=== PATIENT | female | born 1985 | race African-American/Black ===

== ENCOUNTER 2020-07-13 01:19 | Emergency (ER) | payer SELFPAY ==
[~2020-07-13] VITALS: Ht 162.6 cm; Wt 113.6 kg
[~2020-07-13 01:19] MED LIST: ABILIFY2 MG PO; AMOXICILLIN875 MG OR; AUGMENTIN500TAB PO; AUGMENTIN875TAB PO; BENADRYL25 MG PO; BUSPAR15 MG PO; CITALOPRAM40 MG PO; CLARITHROMYC500 MG PO; DEPO-MEDROL80 MG/ML IM; FLAGYL500 MG OR; FLONASE0.05 %; HYDROCHLOROT12.5 MG PO; LORTAB 5/3255 MG PO; MEDDOSEPAK PO; MUPIROCIN2 % EX; NO MEDS; OMEPRAZOLE20 MG PO; OMEPRAZOLE40 MG PO; PENICILLN VK500 MG PO; PRENATAL1 TA1 PO; PRILOSEC20 MG/CAP PO; PRILOSEC40 MG PO; RANITIDINE150 MG OR; RISPERIDONE1 MG PO; ROCEPHIN 1 GM1 GM IM; ZANTAC300 MG PO; ZOLOFT50 MG PO; ZOVIRAX51 EX
[2020-07-13 02:10] VITALS: BP 124/81
== END 2020-07-13 02:22 | disposition home or self-care (01) | DRG 950 ==
LOC: ED 01:19
DX: S11.93XD Puncture wound without foreign body of unspecified part of neck, subsequent encounter (principal); W34.010D Accidental discharge of airgun, subsequent encounter; F17.210 Nicotine dependence, cigarettes, uncomplicated; F31.9 Bipolar disorder, unspecified

== ENCOUNTER 2020-09-11 15:33 | Emergency (ER) | payer SELFPAY ==
[~2020-09-11] VITALS: Ht 162.6 cm; Wt 109.1 kg
[2020-09-11 16:43] VITALS: BP 133/96
== END 2020-09-11 16:49 | disposition home or self-care (01) | DRG 935 ==
LOC: ED 15:33
PROC: 2W2JX4Z Dressing of Right Finger using Bandage (ICD-10-PCS; principal; 2020-09-11)
PROC: 2W2GX4Z Dressing of Right Thumb using Bandage (ICD-10-PCS; 2020-09-11)
PROC: 2W2QX4Z Dressing of Right Lower Leg using Bandage (ICD-10-PCS; 2020-09-11)
PROC: 2W2SX4Z Dressing of Right Foot using Bandage (ICD-10-PCS; 2020-09-11)
DX: T25.221A Burn of second degree of right foot, initial encounter (principal); T25.211A Burn of second degree of right ankle, initial encounter; T23.221A Burn of second degree of single right finger (nail) except thumb, initial encounter; T23.211A Burn of second degree of right thumb (nail), initial encounter; T31.0 Burns involving less than 10% of body surface; I10 Essential (primary) hypertension; F31.9 Bipolar disorder, unspecified; F17.210 Nicotine dependence, cigarettes, uncomplicated; X04.XXXA Exposure to ignition of highly flammable material, initial encounter; Y93.89 Activity, other specified